=== PATIENT | male | born 2000 | race Caucasian/White ===

== ENCOUNTER 2020-09-02 19:55 | Emergency (ER) | payer MEDICAID ==
[~2020-09-02] VITALS: Ht 172.7 cm; Wt 79.4 kg
[2020-09-02 19:59] VITALS: Ht 172.7 cm; Wt 79.4 kg
[2020-09-02] MEDS ORDERED: AMOXICILLIN500 M1 PO (20:05)
[2020-09-02] MEDS ORDERED: TRAZODONE HCL150 MG PO (20:05)
[2020-09-02] MEDS ORDERED: ATIVAN1 MG PO (20:06)
[2020-09-02] MEDS ORDERED: TRILEPTAL300 MG PO (20:06)
[2020-09-02] MEDS ORDERED: CLOMIPRAMINE HC25 MG PO (20:07)
[2020-09-02] MEDS ORDERED: MYCOSTATIN500000 UNI PO (20:07)
[2020-09-02] MEDS ORDERED: THORAZINE25 MG PO (20:08)
[2020-09-02 21:58] LABS: BASOPHILS 0.4 % (0-2); EOSINOPHILS 3.1 % (0-7); HEMATOCRIT 38.5 % (42.0-54.0); HEMOGLOBIN 14.1 g/dL (13.5-17.5); IMMATURE GRANULOCYTES 0.2 % (0-5); LYMPHOCYTE ABS# 3.01 10x3/uL (1.32-3.57); MCH 34.6 pg (26.0-34.0); MCHC 36.6 g/dL (31.0-37.0); MCV 94.4 fL (80.0-100.0); MEAN PLATELET VOLUME 9.6 fL (7.4-10.4); MONOCYTES 9.5 % (2-11); NEUTROPHIL ABS# 4.24 10x3/uL (1.78-5.38); NEUTROPHILS 50.8 % (40-80); PLATELET COUNT 244 10x3/uL (130-400); RBC 4.08 10x6/uL (4.20-6.10); RDW 11.5 % (11.5-14.5); WBC 8.4 10x3/uL (4.8-10.8)
[2020-09-02 22:06] LABS: CALC OSMOLALITY 267 mosm/kg (275-300); CALCIUM 8.2 mg/dL (8.5-10.1); CARBON DIOXIDE 22.1 mmol/L (21.0-32.0); CHLORIDE - SERUM 103 mmol/L (98-107); CREATININE - SERUM 0.8 mg/dL (0.6-1.3); GLUCOSE 92 mg/dL (74-106); SODIUM 134 mmol/L (136-145); UREA NITROGEN 13 mg/dL (7-18); eGFR NON AFRICAN AMERICAN > 90 mL/min (90-120)
[2020-09-02 22:27] LABS: BILIRUBIN NEGATIVE (NEGATIVE); KETONE NEGATIVE (NEGATIVE); NITRITE NEGATIVE (NEGATIVE); UROBILINOGEN NORMAL mg/dL (< 2)
[2020-09-02 22:29] LABS: BACTERIA FEW HPF (NONE SEEN); WHITE CELLS - URINE 2 HPF (0-1)
[2020-09-02 22:31] LABS: ALBUMIN 4.1 g/dL (3.4-5.0); ALKALINE PHOSPHATASE 95 U/L (30-120); ALT (SGPT) 22 U/L (10-68); BILIRUBIN - TOTAL 0.45 mg/dL (0.2-1.3); CREATINE KINASE 412 UL (21-232); LIPASE 61 U/L (73-393); MAGNESIUM - SERUM 1.9 mg/dL (1.8-2.4); PROTEIN - SERUM 6.9 g/dL (6.4-8.2); THYROID STIMULATING HORMONE 7.53 uIU/mL (0.36-3.74)
[2020-09-02 22:33] LABS: ACETAMINOPHEN < 10.0 ug/mL (10.0-30.0)
[2020-09-02 22:34] LABS: CKMB 1.4 U/L (0.0-3.6)
[2020-09-02 22:44] LABS: UDS - AMPHET NEGATIVE QUAL (NEGATIVE); UDS - BARB NEGATIVE QUAL (NEGATIVE); UDS - BENZO NEGATIVE QUAL (NEGATIVE); UDS - COCAINE NEGATIVE QUAL (NEGATIVE); UDS - OPIATE NEGATIVE QUAL (NEGATIVE); UDS - PCP NEGATIVE QUAL (NEGATIVE); UDS - THC NEGATIVE QUAL (NEGATIVE)
[2020-09-02 23:10] LABS: INFLUENZA TYPE A NEGATIVE (NEGATIVE); INFLUENZA TYPE B NEGATIVE (NEGATIVE)
[2020-09-02 23:43] LABS: T4 THYROXIN - FREE 1.01 ng/dL (0.76-1.46)
[2020-09-03] MEDS ORDERED: THORAZINE50 MG PO (09:40)
[2020-09-03] MEDS ORDERED: THORAZINE25 MG PO (11:32)
[2020-09-03] MEDS ORDERED: TRILEPTAL300 MG PO (11:33)
[2020-09-06 09:00] VITALS: BP 127/70
--- NOTE | 2020-09-06 15:41 | PN ---
PATIENT:SPIKE BLANCO MEDICAL RECORD: [id number] LOCATION:[facility] ADMISSION DATE: 09/02/20 PROGRESS NOTE DATE OF SERVICE: 09/06/2020 SUBJECTIVE: The patient is 19 years old and has profound autism. He was brought to the Emergency Room 4 days ago by his parents because of combative behavior. Apparently, he has had combative behavior in the past, this is escalated and they could not manage him. The autism is severe. In fact, he is a nonverbal individual. The mother is a very dedicated woman who has been with him constantly for the past 4 days. Initially, the Emergency Room physician recommended inpatient service, but that has been a futile endeavor with no one being willing to take an autistic, nonverbal patient on the behavioral unit. The patient does have a psychiatrist in [place] who he has been seen, that physician has used Thorazine in the past when the patient becomes agitated and recommended the Thorazine. The patient was started on Thorazine here by one of the ER physicians, but the ER physicians do not feel comfortable prescribing it for him. I do feel comfortable prescribing it. I think it is helpful and has allowed the mom to manage him at home in the past and hopefully it will do so again. He has been prescribed Thorazine at a dose of 100 mg twice daily and he is to have followup with his physician in [place] upon discharge. Unfortunately, this does not answer the larger overwhelming question of how to manage an adult man 19 years old with this advanced autism and occasional behavioral outbursts. The longstanding solution seems a mystery to me. Because of the autism and his nonverbal situation, he is not going to be accepted into a traditional adult psychiatric unit, he is not appropriate for retirement placement. He is currently not in the [facility] system and may not be able to get into that. This is a tragic situation with the patient falling between social work lecturer cracks and in my view, I am trying to help the mother manage what could be a potentially dangerous situation. ASSESSMENT: Autism. PLAN: Thorazine 100 mg twice daily. Follow up with outpatient physician. TRANSINT:[id number] Voice Confirmation ID: [id number] DOCUMENT ID: [id number] JUANCARLOS AMBROSIO MD at 1540 CC: [id number] DICTATION DATE: 09/06/20 1411 ZINC CHLORIDE OPERATOR: 09/06/[address] [facility] [address] [id number]
== END 2020-09-06 15:49 | disposition home or self-care (01) ==
LOC: D.ER 19:55
PROVIDERS: Family Medicine
DX: F84.0 Autistic disorder (principal); R46.89 Other symptoms and signs involving appearance and behavior